=== PATIENT | female | born 1995 | race Caucasian/White ===

== ENCOUNTER → 2019-04-20 | Emergency (ER) | payer OTHER ==
[~2019-04-20] VITALS: Ht 167.6 cm; Wt 49.9 kg
[~2019-04-20] MED LIST: AZITHROMYCIN500 MG PO; DOLOGEN CAPLET1 TAB PO; DUI500 PO; KETO10TA2 PO; MONISTAT 315 GM VAG; PHENAGIL CH TA1 EACH PO; PROVENTIL3 ML/2.5 M IH; TUSSIONEX PENNKI5 ML PO
== END | disposition home or self-care (01) ==
LOC: ER 21:26
DX: B37.3 Candidiasis of vulva and vagina (principal); R10.2 Pelvic and perineal pain